=== PATIENT | female | born 1995 | race Hispanic/Latino ===

== ENCOUNTER 2018-03-01 16:15 | Inpatient (IN) | payer OTHER ==
[~2018-03-01] VITALS: Ht 158.8 cm; Wt 80.4 kg
[2018-03-01 16:29] LABS: BASOPHIL (%) 0.5 % (0-1); BASOPHIL COUNT 0.1 K/uL (0-0.1); EOSINOPHIL (%) 1.4 % (0-5); EOSINOPHIL COUNT 0.2 K/uL (0-0.3); HEMATOCRIT 35.4 % (36.0-46.0); HEMOGLOBIN 12.3 G/DL (11.9-15.5); IMMATURE GRANULOCYTE (%) 0.4 % (0.0-0.7); LYMPHOCYTE (%) 36.3 % (15-42); MCH 32.5 PG (29.0-34.0); MCHC 34.7 G/DL (30.0-36.0); MCV 93.4 FL (83-99); MONOCYTE (%) 5.9 % (3-12); MONOCYTE COUNT 0.7 K/uL (0-0.8); NEUTROPHIL (%) 55.5 % (45-76); NEUTROPHIL COUNT 6.1 K/uL (1.8-6.4); PLATELET COUNT 318 K/uL (156-360); RBC DIS.WIDTH-CV 12.1 % (11.8-14.6); RBC DIS.WIDTH-SD 41.3 % (39-53); RED BLOOD COUNT 3.79 M/uL (3.80-5.20)
[2018-03-01 16:38] LABS: AMYLASE 54 IU/L (1-118); CHLORIDE 103 mEq/L (99-109); SODIUM 139 mEq/L (136-147)
[2018-03-01 16:40] LABS: GLUCOSE 98 mg/dL (70-99)
[2018-03-01 16:43] LABS: SERUM ETHYL ALCOHOL < 10 mg/dL
[2018-03-01 16:44] LABS: CREATININE 0.8 mg/dL (0.6-1.3)
[2018-03-01 16:45] LABS: UREA NITROGEN (BUN) 15 mg/dL (9-23)
[2018-03-01 16:46] LABS: GFR ESTIMATE (CALCULATED) > 59 mL/min/
[2018-03-01 16:47] LABS: LIPASE 31 U/L (1.0-51.0)
[2018-03-01 16:53] LABS: QUANTITATIVE HCG < 4.0 MIU/ML
[2018-03-01 18:34] LABS: APPEARANCE CLEAR ((CLEAR)); BILIRUBIN NEGATIVE; BLOOD NEGATIVE; COLOR YELLOW ((YELLOW)); GLUCOSE (STRIP) NEGATIVE; KETONES NEGATIVE; LEUKOCYTES LARGE; NITRITE NEGATIVE; PROTEIN (STRIP) NEGATIVE; SPECIFIC GRAVITY 1.059 (1.000-1.030); UROBILINOGEN 0.2 MG/DL (0.2-1.0)
[2018-03-01 18:47] LABS: AMPHETAMINE NEGATIVE (500 ng/mL); BACTERIA NONE SEEN /HPF; BARBITURATES NEGATIVE (200 ng/mL); BENZODIAZEPINES NEGATIVE (150 ng/mL); BUPRENORPHINE NEGATIVE (10 ng/mL); COCAINE NEGATIVE (150 ng/mL); EPITHELIAL CELLS 1+ /HPF; METHADONE NEGATIVE (200 ng/mL); METHAMPHETAMINE NEGATIVE (500 ng/mL); MUCUS TRACE /LPF; OPIATES (MORPHINE) NEGATIVE (100 ng/mL); OXYCODONE NEGATIVE (100 ng/mL); PHENCYCLIDINE NEGATIVE (25 ng/mL); PROPOXYPHENE NEGATIVE (300 ng/mL); RED BLOOD CELLS 0-5 /HPF (0-5); THC CANNABINOIDS NEGATIVE (50 ng/mL); TRICYCLIC ANTIDEPRESSANTS NEGATIVE (300 ng/mL); UCUL ADDED? YES; WHITE BLOOD CELLS 30-40 /HPF (0-5)
[2018-03-02] VITALS (7 sets, daily range): BP systolic 100–118; BP diastolic 55–77
[2018-03-02 06:15] LABS: HEMATOCRIT 34.6 % (36.0-46.0); HEMOGLOBIN 11.6 G/DL (11.9-15.5); MCH 31.6 PG (29.0-34.0); MCHC 33.5 G/DL (30.0-36.0); MCV 94.3 FL (83-99); PLATELET COUNT 290 K/uL (156-360); RBC DIS.WIDTH-SD 41.5 % (39-53); RED BLOOD COUNT 3.67 M/uL (3.80-5.20); WHITE BLOOD COUNT 11.6 K/uL (4.1-10.2)
[2018-03-02 06:37] LABS: ALBUMIN 3.9 G/DL (3.2-4.8); ALKALINE PHOSPHATASE 60 IU/L (3-129); ALT (GPT) 11 IU/L (3-49); AST (GOT) 20 IU/L (2-34); CHLORIDE 106 MEQ/L (99-109); CREATININE 0.7 MG/DL (0.6-1.3); GFR ESTIMATE (CALCULATED) > 59 mL/min/; GLUCOSE 130 mg/dL (70-99); POTASSIUM 4.3 MEQ/L (3.7-5.4); SODIUM 139 MEQ/L (136-147); TOTAL BILIRUBIN 0.5 MG/DL (0.0-1.0); TOTAL PROTEIN 6.3 G/DL (6.4-8.3); UREA NITROGEN (BUN) 6 mg/dL (9-23)
[2018-03-02 11:20] LABS: APPEARANCE CLEAR ((CLEAR)); BILIRUBIN NEGATIVE; BLOOD MODERATE; COLOR STRAW ((YELLOW)); GLUCOSE (STRIP) NEGATIVE; KETONES NEGATIVE; LEUKOCYTES MODERATE; NITRITE NEGATIVE; PROTEIN (STRIP) NEGATIVE; SPECIFIC GRAVITY 1.009 (1.000-1.030); UROBILINOGEN 0.2 MG/DL (0.2-1.0)
[2018-03-02 11:32] LABS: BACTERIA NONE SEEN /HPF; CALCIUM OXALATE CRYSTALS 2+ /HPF; EPITHELIAL CELLS RARE /HPF; MUCUS NONE SEEN /LPF; RED BLOOD CELLS 20-30 /HPF (0-5); UCUL ADDED? NO; WHITE BLOOD CELLS 0-5 /HPF (0-5)
[2018-03-03 04:25] VITALS: BP 103/58
[2018-03-03 07:33] VITALS: BP 103/56
[2018-03-03] MEDS ORDERED: CIPROFLOXACIN500 M1 PO (10:58)
[2018-03-03] MEDS ORDERED: HYDROMORPHONE HC4 MG PO (10:58)
[2018-03-03] MEDS ORDERED: MOTRIN600 MG PO (10:58)
[2018-03-03 11:21] VITALS: BP 102/57
[2018-03-03 16:19] VITALS: BP 107/60
== END 2018-03-03 17:45 | disposition home or self-care (01) | DRG 358 ==
LOC: TRA 16:15 → ENRESERV 20:13 → 3EAST 20:13 → 2SOUTH 20:13 → ENRESERV 20:22 → TRA 20:45 → ENRESERV 20:46 → 3EAST 03-02 00:22
PROVIDERS: Emergency Medicine; Surgery
PROC: 0WJG4ZZ Inspection of Peritoneal Cavity, Percutaneous Endoscopic Approach (ICD-10-PCS; principal; 2018-03-01)
DX: K66.8 Other specified disorders of peritoneum (principal); S30.1XXA Contusion of abdominal wall, initial encounter; S80.02XA Contusion of left knee, initial encounter; V89.2XXA Person injured in unspecified motor-vehicle accident, traffic, initial encounter; Y92.410 Unspecified street and highway as the place of occurrence of the external cause; R33.9 Retention of urine, unspecified
CPT/HCPCS: 70450; 71045; 71260; 72125; 72170; 73100; 73552; 73560; 73590; 74177; 80048; 80053; 81003; 82150; 83690; 84702; 85025; 85027; 86850; 86900; 86901; 87086; 99281; 99285; G0480; J1170; J2250; J2405; J2550; J3010; J7120; S0020; S0028; S0074